=== PATIENT | female | born 1970 | race Caucasian/White ===

== ENCOUNTER 2021-05-06 13:02 | Emergency (ER) | payer MEDICAID ==
[~2021-05-06] VITALS: Ht 165.1 cm; Wt 65.0 kg
[2021-05-06 13:29] VITALS: BP 125/80
[2021-05-06] MEDS ORDERED: normal saline 1000ML IV soln IVB ONE (14:45)
[2021-05-06] MEDS ORDERED: ibuprofen tablet 400 MG TABLET PO ONE (14:45)
[2021-05-06] MEDS ORDERED: ALBUTEROL INHALER 1 PUFF/90 MCG INHALER IH PRN (14:45)
== END 2021-05-06 17:59 | disposition home or self-care (01) ==
LOC: ER 13:02
DX: U07.1 COVID-19 (principal); R06.02 Shortness of breath; F15.90 Other stimulant use, unspecified, uncomplicated; Z56.0 Unemployment, unspecified
CPT/HCPCS: 71045; 87635; 96360; 96361; 99284; C9803; J7030

== ENCOUNTER 2023-04-17 03:33 | Emergency (ER) | payer MEDICAID ==
[~2023-04-17] VITALS: Ht 165.1 cm; Wt 72.0 kg
[2023-04-17 03:38] VITALS: BP 141/75; PULSE 100; RESP 18; TEMP 98.8; O2SAT 98
== END 2023-04-17 06:55 | disposition left against medical advice (07) ==
LOC: ER 03:35
DX: M79.10 Myalgia, unspecified site (principal); Z53.21 Procedure and treatment not carried out due to patient leaving prior to being seen by health care provider
CPT/HCPCS: 99281